=== PATIENT | male | born 1935 | race Two or more races ===

== ENCOUNTER 2023-04-09 09:01 | Inpatient (IN) | payer OTHER ==
[~2023-04-09] VITALS: Ht 172.7 cm; Wt 68.0 kg
[2023-04-09] MEDS ORDERED: AMLODIPINE-OLM1 EAC2 (09:30)
[2023-04-09] MEDS ORDERED: LIPITOR20 MG PO (09:31)
[2023-04-09] MEDS ORDERED: COZAAR50 MG PO (09:31)
[2023-04-09 10:52] LABS: HEMATOCRIT 24.9 % (39.0-48.0); MEAN CELL VOLUME 96.6 fL (80.0-100.00); MEAN CORPUSCULAR HGB CONC 33.9 g/dl (32.0-36.0); RED BLOOD COUNT 2.58 M/uL (4.00-6.00); RED CELL DISTRIBUTION WIDTH 16.6 % (11.5-14.5)
[2023-04-09 11:00] LABS: URINE APPEARANCE Clear; URINE BACTERIA 15.1 uL (0.0-1933); URINE BILIRRUBIN Negative (NEGATIVE); URINE BLOOD Negative; URINE COLOR Yellow; URINE EPITHELIAL CELLS 1.8 uL (0.0-38.8); URINE GLUCOSE Negative (NEGATIVE); URINE LEUKOCYTE Negative; URINE NITRATE Negative; URINE PROTEIN 30 (NEGATIVE); URINE RBC 5.3 uL (0.0-20.8)
[2023-04-09 11:05] LABS: URINE WBC 0.1 uL (0.0-23.2)
[2023-04-09 11:06] LABS: CALCIUM 9.1 mg/dL (8.5-10.1); CREATININE SERUM 1.02 mg/dL (0.70-1.30); GFR 69.09; POTASSIUM 3.93 mEq/L (3.5-5.1)
[2023-04-09 11:24] LABS: MEAN CORPUSCULAR HEMOGLOBIN 32.9 pg (27.00-32.0)
[2023-04-09 11:25] LABS: PLATELET COUNT 15 K/uL (150-450)
[2023-04-09 11:26] LABS: HEMOGLOBIN 8.5 g/dL (13-16.00)
[2023-04-09 21:58] LABS: ALBUMIN 3.2 gm/dL (3.4-5.0); BILIRUBIN TOTAL 0.65 mg/dL (0.3-1.2); CALCIUM 8.7 mg/dL (8.5-10.1); CREATININE SERUM 0.85 mg/dL (0.70-1.30); GFR 85.26; POTASSIUM 3.51 mEq/L (3.5-5.1); TOTAL PROTEIN 7.2 gm/dL (6.4-8.2)
[2023-04-09 22:00] LABS: C-REACTIVE PROTEIN 14.7 MG/DL (0.00-0.29)
[2023-04-11 07:55] LABS: MEAN CELL VOLUME 94.5 fL (80.0-100.00); MEAN CORPUSCULAR HGB CONC 36.5 g/dl (32.0-36.0); RED BLOOD COUNT 2.05 M/uL (4.00-6.00); RED CELL DISTRIBUTION WIDTH 16.1 % (11.5-14.5)
[2023-04-11 08:05] LABS: HEMATOCRIT 19.4 % (39.0-48.0); MEAN CORPUSCULAR HEMOGLOBIN 34.6 pg (27.00-32.0)
[2023-04-11 08:06] LABS: HEMOGLOBIN 7.1 g/dL (13-16.00); PLATELET COUNT 46 K/uL (150-450)
[2023-04-11 08:40] LABS: ALBUMIN 2.5 gm/dL (3.4-5.0); BILIRUBIN TOTAL 0.37 mg/dL (0.3-1.2); CALCIUM 8.1 mg/dL (8.5-10.1); CREATININE SERUM 0.76 mg/dL (0.70-1.30); GFR 97.02; GLOBULINA 3.5 G/DL (2.4-3.5); MAGNESIUM 1.6 mg/dL (1.8-2.4); POTASSIUM 3.62 mEq/L (3.5-5.1)
[2023-04-11 09:06] LABS: PHOSPHOROUS 1.5 mg/dL (2.5-4.9)
[2023-04-12 20:27] LABS: HEMATOCRIT 27.4 % (39.0-48.0); MEAN CORPUSCULAR HGB CONC 34.3 g/dl (32.0-36.0); RED BLOOD COUNT 2.98 M/uL (4.00-6.00); RED CELL DISTRIBUTION WIDTH 17.5 % (11.5-14.5)
[2023-04-12 21:43] LABS: HEMOGLOBIN 9.4 g/dL (13-16.00); MEAN CORPUSCULAR HEMOGLOBIN 31.5 pg (27.00-32.0)
[2023-04-12 21:44] LABS: PLATELET COUNT 71 K/uL (150-450)
[2023-04-13 07:42] LABS: HEMATOCRIT 25.6 % (39.0-48.0); MEAN CELL VOLUME 91.4 fL (80.0-100.00); MEAN CORPUSCULAR HGB CONC 34.9 g/dl (32.0-36.0)
[2023-04-13 07:47] LABS: ALBUMIN 2.5 gm/dL (3.4-5.0); BILIRUBIN TOTAL 0.77 mg/dL (0.3-1.2); CALCIUM 7.8 mg/dL (8.5-10.1); CREATININE SERUM 0.68 mg/dL (0.70-1.30); GFR 110.3; GLOBULINA 3.1 G/DL (2.4-3.5); MAGNESIUM 2.2 mg/dL (1.8-2.4); POTASSIUM 4.03 mEq/L (3.5-5.1); TOTAL PROTEIN 5.6 gm/dL (6.4-8.2)
[2023-04-13 07:53] LABS: HEMOGLOBIN 8.9 g/dL (13-16.00); MEAN CORPUSCULAR HEMOGLOBIN 31.7 pg (27.00-32.0); PLATELET COUNT 58 K/uL (150-450)
[2023-04-13 09:08] LABS: PLATELET ESTIMATE DECREASED (NORMAL)
[2023-04-13 09:26] LABS: PHOSPHOROUS 1.2 mg/dL (2.5-4.9)
[2023-04-14 07:00] LABS: HEMATOCRIT 26.2 % (39.0-48.0); MEAN CELL VOLUME 91.9 fL (80.0-100.00); MEAN CORPUSCULAR HEMOGLOBIN 31.6 pg (27.00-32.0); MEAN CORPUSCULAR HGB CONC 34.4 g/dl (32.0-36.0); RED BLOOD COUNT 2.85 M/uL (4.00-6.00)
[2023-04-14 07:26] LABS: CALCIUM 7.7 mg/dL (8.5-10.1); CREATININE SERUM 0.66 mg/dL (0.70-1.30); GFR 114.17; POTASSIUM 4.1 mEq/L (3.5-5.1)
[2023-04-14 07:34] LABS: PLATELET COUNT 38 K/uL (150-450)
[2023-04-14 08:05] LABS: PHOSPHOROUS 1.5 mg/dL (2.5-4.9)
[2023-04-15] MEDS ORDERED: PANTOPRAZOLE SO40 MG PO (11:43)
[2023-04-15] MEDS ORDERED: INTEGRA PLUS C1 EACH PO (11:43)
[2023-04-15] MEDS ORDERED: PRE PROTEIN1 EACH PO (11:43)
[2023-04-15] MEDS ORDERED: FOLIC ACID1 MG PO (11:43)
[2023-04-15] MEDS ORDERED: AMLODIPINE BESYL5 MG PO (11:43)
[2023-04-15] MEDS ORDERED: COLACE100 MG PO (11:43)
[2023-04-15] MEDS ORDERED: LOSARTAN POTASS25 MG PO (11:43)
[2023-04-15] MEDS ORDERED: CEFEPIME 22 GM/100 M IV (11:44)
[2023-04-15] MEDS ORDERED: METRONIDAZOLE500 MG PO (11:45)
== END 2023-04-15 12:29 | disposition designated cancer center or children's hospital (05) | DRG 808 ==
LOC: ER 09:01 → ICU-2 20:14 → MEDJ 04-11 13:01
PROVIDERS: Emergency Medicine; ADMIT Internal Medicine; ATTEND Internal Medicine
PROC: BW21YZZ Computerized Tomography (CT Scan) of Abdomen and Pelvis using Other Contrast (ICD-10-PCS; 2023-04-09)
PROC: 8E0ZXY6 Isolation (ICD-10-PCS; 2023-04-09)
PROC: 30233R1 Transfusion of Nonautologous Platelets into Peripheral Vein, Percutaneous Approach (ICD-10-PCS; principal; 2023-04-10)
PROC: BW30YZZ Magnetic Resonance Imaging (MRI) of Abdomen using Other Contrast (ICD-10-PCS; 2023-04-10)
PROC: BW30ZZZ Magnetic Resonance Imaging (MRI) of Abdomen (ICD-10-PCS; 2023-04-10)
PROC: 30233N1 Transfusion of Nonautologous Red Blood Cells into Peripheral Vein, Percutaneous Approach (ICD-10-PCS; 2023-04-12)
DX: D70.8 Other neutropenia (principal); A41.9 Sepsis, unspecified organism; C95.90 Leukemia, unspecified not having achieved remission; D61.9 Aplastic anemia, unspecified; K52.89 Other specified noninfective gastroenteritis and colitis; D49.0 Neoplasm of unspecified behavior of digestive system; D64.89 Other specified anemias; D69.6 Thrombocytopenia, unspecified; E83.39 Other disorders of phosphorus metabolism; K59.00 Constipation, unspecified; I10 Essential (primary) hypertension
CPT/HCPCS: 74182